=== PATIENT | female | born 1950 | race Hispanic/Latino ===

== ENCOUNTER → 2019-11-26 | Outpatient (CLI) | payer OTHER ==
[~2019-11-26] MED LIST: ATORVASTATIN CA20 MG PO; LISINOPRIL10 MG PO; METFORMIN HCL500 MG PO
--- NOTE | 2019-11-26 12:34 | Diagnostic Imaging Report ---
Exam: KUB Clinical history: Renal calculus Findings: Mild to moderate retained feces are noted throughout the colon. Round calcific densities are noted in bilateral pelvic regions likely represent phleboliths. No other calcifications noted along the course of bilateral renal collecting systems. The regional osseous structures are unremarkable. Impression: 1. Unremarkable KUB. Signed by: Dr. Derrek Subramanian MD on 11/26/2019 12:32 PM
== END ==
LOC: RAD 11:14
PROVIDERS: ATTEND Urology
DX: N20.0 Calculus of kidney (principal)
CPT/HCPCS: 74018